=== PATIENT | female | born 1985 | race Two or more races ===

== ENCOUNTER 2020-04-02 16:06 | Emergency (ER) | payer BC ==
[~2020-04-02] VITALS: Ht 167.6 cm; Wt 75.7 kg
[2020-04-02 17:27] LABS: BASOPHILS % (AUTO) 0.2 % (0.0-2.0); HEMATOCRIT 36 % (33-45); HEMOGLOBIN 11.7 g/dL (11.5-14.8); LYMPHOCYTES # (AUTO) 0.9 /CMM (0.8-4.8); LYMPHOCYTES % (AUTO) 20.2 % (20.0-44.0); MEAN CORPUSCULAR HGB CONC 33 g/dl (31.0-36.0); MEAN CORPUSCULAR VOLUME 80 fL (82-100); MONOCYTES # (AUTO) 0.3 /CMM (0.1-1.30); MONOCYTES % (AUTO) 6.1 % (2.0-12.0); NEUTROPHILS # (AUTO) 3.2 /CMM (1.8-8.9); NEUTROPHILS % (AUTO) 73.5 % (43.0-81.0); PLATELET COUNT (AUTO) 238 /CMM (150-450); RED BLOOD CELL COUNT(AUTO) 4.51 MIL/uL (4.0-5.2); WHITE BLOOD COUNT (AUTO) 4.3 K/uL (4.3-11.0)
[2020-04-02] MEDS ORDERED: IV NS 0.9% 1,000 ML BAG IV ONE (17:30)
[2020-04-02 17:39] LABS: CALCIUM, SERUM 8.7 mg/dL (8.5-10.1); CARBON DIOXIDE 24 mmol/L (21-32); CHLORIDE 104 mmol/L (98-107); CREATININE 0.7 mg/dL (0.6-1.3); GLUCOSE 107 mg/dL (74-106); SODIUM SERUM 139 mmol/L (136-145); UREA NITROGEN, BLOOD 7 mg/dL (7-18)
--- NOTE | 2020-04-02 17:39 | NUR ---
COOK SPECIALTY AT BEDSIDE FOR NATHAN
[2020-04-02 17:44] LABS: ALANINE AMINOTRANSFERASE 22 U/L (12-78); ALBUMIN 3.4 g/dL (3.4-5.0); ALKALINE PHOSPHATASE 71 U/L (46-116); ASPARTATE AMINOTRANSFERASE 22 U/L (15-37); BILIRUBIN,TOTAL 0.2 mg/dL (0.2-1.0); TOTAL PROTEIN, SERUM 7.6 g/dL (6.4-8.2)
--- NOTE | 2020-04-02 18:05 | NUR ---
URINE SAMPLE COLLECTED AND SENT TO LAB
--- NOTE | 2020-04-02 18:11 | NUR ---
BURN TABLE OPERATOR AT BEDSIDE
[2020-04-02 18:19] LABS: BILIRUBIN,URINE Negative (NEGATIVE); BLOOD, URINE Large Ery/uL (NEGATIVE); COLOR,URINE YELLOW (YELLOW); LEUKOCYTE ESTERASE ,URINE Trace (NEGATIVE); NITRITE, URINE Negative (NEGATIVE); PH,URINE 7.5 (5.0-8.0); PROTEIN,URINE Negative (NEGATIVE); UGLUCOSE Negative (NEGATIVE)
[2020-04-02 18:32] LABS: BACTERIA,URINE Few /HPF (None Seen)
[2020-04-02 18:33] LABS: MUCUS,URINE Rare /LPF (None Seen)
[2020-04-02 21:51] VITALS: BP 120/70
== END 2020-04-02 21:52 | disposition home or self-care (01) ==
LOC: ER 17:17
DX: U07.1 COVID-19 (principal); J12.89 Other viral pneumonia; N93.9 Abnormal uterine and vaginal bleeding, unspecified; Z97.5 Presence of (intrauterine) contraceptive device
CPT/HCPCS: 36415; 71045; 76856; 80048; 80076; 81001; 84484; 84703; 85025; 85730; 87804; 96360; 99285; C9803; J7030; U0003